=== PATIENT | male | born 1995 | race Asian ===

== ENCOUNTER 2018-05-21 07:23 | Day surgery (SDC) | payer OTHER ==
[~2018-05-21 07:23] MED LIST: SEVOFLURANE 15 MIN
[2018-05-21] MEDS ORDERED: CEFAZOLIN 2 GM/50 ML (PMX) 50 ML IVPB (07:30)
[2018-05-21 08:21] LABS: ADD MAN DIFF? NO
[2018-05-21] MEDS: SOD CHLORIDE 0.9% 1,000 ML IV (08:21)
[2018-05-21 08:29] LABS: BASOPHIL # 0.1 10^3/ul (0.0-0.1); BASOPHILS % 1.5 % (0.0-2.0); EOSINOPHILS # 0.7 10^3/ul (0.0-0.5); HEMATOCRIT 46.9 % (42.0-52.0); HEMOGLOBIN 14.9 g/dl (14.0-18.0); LYMPHOCYTES # 2.9 10^3/ul (0.8-2.9); LYMPHOCYTES % 32.6 % (15.0-51.0); MEAN CORPUSCULAR HEMOGLOBIN 28.4 pg (29.0-33.0); MEAN CORPUSCULAR HGB CONC 31.8 g/dl (32.0-37.0); MEAN CORPUSCULAR VOLUME 89.5 fl (82.0-101.0); MEAN PLATELET VOLUME 10.7 fl (7.4-10.4); MONOCYTE # 0.8 10^3/ul (0.3-0.9); MONOCYTES % 9.4 % (0.0-11.0); NEUTROPHIL # 4.2 10^3/ul (1.6-7.5); PLATELET COUNT 269 10^3/UL (140-415); RED BLOOD COUNT 5.24 10^6/ul (4.70-6.10); RED CELL DISTRIBUTION WIDTH 12.7 % (11.5-14.5)
[2018-05-21 08:29] LABS: WHITE BLOOD COUNT 8.8 10^3/ul (4.8-10.8)
[2018-05-21 08:46] LABS: ALANINE AMINOTRANSFERASE 75 IU/L (13-69); ALBUMIN 4.8 g/dl (3.3-4.9); ALBUMIN/GLOBULIN RATIO 1.37; ALKALINE PHOSPHATASE 64 IU/L (42-121); ANION GAP 14 (5-13); ASPARTATE AMINO TRANSFERASE 36 IU/L (15-46); BILIRUBIN,INDIRECT 0.2 mg/dl (0-1.1); BILIRUBIN,TOTAL 0.2 mg/dl (0.2-1.3); BLOOD UREA NITROGEN 18 mg/dl (7-20); CALCIUM 9.6 mg/dl (8.4-10.2); CARBON DIOXIDE 25 mmol/L (21-31); CHLORIDE 102 mmol/L (97-110); CREATININE 0.88 mg/dl (0.61-1.24); Estimated GFR > 60 mL/min (>60); GLUCOSE 101 mg/dl (70-220); POTASSIUM 4.1 mmol/L (3.5-5.1); SODIUM 141 mmol/L (135-144); TOTAL PROTEIN 8.3 g/dl (6.1-8.1)
[2018-05-21 08:48] LABS: PARTIAL THROMBOPLASTIN TIME 32.7 Sec (23.0-35.0)
[2018-05-21 08:54] LABS: INR 0.92; PROTIME 12.5 Sec (11.9-14.9)
[2018-05-21] MEDS ORDERED: ROCURONIUM 50 MG INJ (10:11)
[2018-05-21] MEDS ORDERED: PROPOFOL 20 ML (10:11)
[2018-05-21] MEDS ORDERED: CEFAZOLIN 1 GM INJ (10:11)
[2018-05-21] MEDS ORDERED: MIDAZOLAM 1 MG/ML 2 ML INJ (10:12)
[2018-05-21] MEDS ORDERED: FENTAnyl 50 MCG/ML VIAL (10:12)
[2018-05-21] MEDS ORDERED: ONDANSETRON 4 MG INJ (10:27)
[2018-05-21] MEDS ORDERED: METOCLOPRAMIDE 10 MG INJ (10:27)
[2018-05-21] MEDS ORDERED: DEXAMETHASONE 4 MG/ML 5 ML INJ (10:27)
[2018-05-21] MEDS ORDERED: KETOROLAC 30 MG INJ (10:27)
[2018-05-21] MEDS ORDERED: OXYCODONE/ACETAMINOPHEN (5/325) TAB PO ×2 (10:30)
[2018-05-21] MEDS ORDERED: LABETALOL HCL 20MG INJ IV (10:30)
[2018-05-21] MEDS ORDERED: EPHEDrine SULFATE 50 MG/5 ML SYG IV (10:30)
[2018-05-21] MEDS ORDERED: MEPERIDINE 25 MG INJ IV (10:30)
[2018-05-21] MEDS ORDERED: FENTAnyl 50 MCG/ML VIAL IV ×3 (10:30)
[2018-05-21] MEDS ORDERED: ALBUTEROL 0.083% (NEB) 2.5 MG/3 ML AMP HHN (10:30)
[2018-05-21] MEDS ORDERED: METOCLOPRAMIDE 10 MG INJ IV (10:30)
[2018-05-21] MEDS ORDERED: DIPHENHYDRAMINE 50 MG INJ IV (10:30)
[2018-05-21] MEDS ORDERED: ONDANSETRON 4 MG INJ IV (10:30)
[2018-05-21] MEDS ORDERED: HYDROmorphONE 1 MG/5 ML IV SYRINGE IV ×3 (10:30)
[2018-05-21] MEDS: BUPIVACAINE 0.5%/EPI (SDV) 30 ML INJ (10:45)
[2018-05-21] MEDS: METHYLENE BLUE 1% 10 ML INJ (10:45)
[2018-05-21] MEDS ORDERED: GLYCOPYRROLATE 0.4 MG INJ (11:04)
[2018-05-21] MEDS ORDERED: NEOSTIGMINE 3 MG/3 ML SYRINGE (11:04)
== END 2018-05-21 14:00 | disposition home or self-care (01) ==
LOC: SDS 07:23
DX: K60.5 Anorectal fistula (principal)
CPT/HCPCS: 46270; 80053; 85025; 85610; 85730; 88304